=== PATIENT | female | born 1935 | race Asian ===

== ENCOUNTER 2017-01-25 22:43 | Emergency (ER) | payer OTHER ==
[~2017-01-25] VITALS: Ht 160 cm; Wt 72.8 kg
[~2017-01-25 22:43] MED LIST: ACTOPLUS MET 851 TAB PO; ADALAT CC60 MG PO; ADALAT CC90 MG PO; ALDACTONE25 MG PO; ASPIRIN ADULT L81 M1 PO; ASPIRIN EC81 M1 PO; ATORVASTATIN CA40 MG PO; AVANDIA; CALCIUM 600/VIT1 CAP PO; CHLORTHALIDONE25 MG PO; COLACE100 M1 PO; COLACE100 MG PO; COREG CR20 MG PO; COREG CR40 MG PO; COREG25 MG PO; COZAAR100 MG PO; COZAAR50 MG PO; ECOTRIN81 MG PO; FIBER TABLETS625 MG PO; GLUCOPHAGE; HYDROCHLOROTHIA25 M1 PO; HYZAAR 12.5 MG-1 TA1 PO; LEVEMIR100 U/M1 SUBQ; LEVEMIR100 U/ML SUBQ; LEVOTHYROXIN0.025 M1 PO; LIPITOR40 MG PO; LISINORIL; MELOXICAM7.5 MG PO; METOPROLOL25 MG PO; NIFEDIPINE ER90 MG PO; OSCAL+D 500 MG/1 TAB PO; PEPCID20 M1 PO; PRAVASTATIN40 M1 PO; PRAZOSIN PO; PROCARDIA10 M1 PO; SENOKOT8.6 MG PO; SYNTHROID0.025 MG PO; THERAGRAN M PO; TYLENOL325 M1 PO; VITAMIN B12100 MC1 PO; VITAMIN B12500 MC1 PO; XANAX0.5 M1 PO; ZETIA10 MG PO; ZOLPIDEM10 M1 PO; ZYLOPRIM100 MG PO
[2017-01-25 22:51] VITALS: BP 156/63
--- NOTE | 2017-01-26 00:12 | NUR ---
TO ER BED 6
--- NOTE | 2017-01-26 00:15 | NUR ---
PT IS 81/F BIB SON TO ED WITH C/O CONSTIPATION, NO BM X 8 DAYS. PRUNE JUICE GIVEN 1600 AND MOM GIVEN AT 2000. PT.ON COLACE AND SENNA DAILY. HX. DEMENTIA, DM, HTN, CABG 2011. DENIES N/V/D; SKIN IS PINK/WARM/DRY; AAOX4 WITH EVEN AND STEADY GAIT; LUNGS CLEAR BL; HR EVEN AND REGULAR; PT DENIES ANY FEVER, CP, SOB, OR COUGH AT THIS TIME; PATIENT STATES PAIN OF 7/10 AT THIS TIME; VSS; PATIENT POSITIONED FOR COMFORT; HOB ELEVATED; BEDRAILS UP X2; BED DOWN. ER MD MADE AWARE OF PT STATUS.
[2017-01-26] MEDS ORDERED: fentaNYL 0.05 MG/ML VIAL IVP ONE (01:20)
[2017-01-26] MEDS ORDERED: NACL 0.9% 1,000 ML IV ONE (01:20)
[2017-01-26] MEDS ORDERED: LACTULOSE 20 GM/30 ML UDC PO ONE (01:20)
--- NOTE | 2017-01-26 02:27 | NUR ---
PT TAKEN OFF THE UNIT TO CT VIA LILIBETH
--- NOTE | 2017-01-26 03:55 | NUR ---
PT HAD LARGE BM. PT CLEANED, LINEN CHANGED. NO SOB NOTED AT THIS TIME. WILL CONTINUE TO MONITOR.
--- NOTE | 2017-01-26 05:03 | NUR ---
CALLED AND LEFT MESSAGE FOR SON VANESSA. DIRECTED BY VANESSA CALLED AND SPOKE WITH OTHER SON ASIF. 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 PT RESTING IN BED. NO SOB NOTED. WILL CONTINUE TO CLOSELY MONITOR.
[2017-01-26 06:35] VITALS: BP 133/57
--- NOTE | 2017-01-26 06:35 | NUR ---
Patient discharged with v/s stable. Written and verbal after care instructions given and explained. Patient alert, oriented and verbalized understanding of instructions. Wheel Chair Assisted with to car. All questions addressed prior to discharge. ID band removed. Patient advised to follow up with PMD. NO Rx WERE given. Patient educated on indication of medication including possible reaction and side effects. Opportunity to ask questions provided and answered. ACCOMPANIED BY ANNALISE GOLD.
== END 2017-01-26 06:35 | disposition home or self-care (01) ==
LOC: MED 22:43
PROC: 3E033GC Introduction of Other Therapeutic Substance into Peripheral Vein, Percutaneous Approach (ICD-10-PCS; principal; 2017-01-25)
PROC: 4A02X4Z Measurement of Cardiac Electrical Activity, External Approach (ICD-10-PCS; 2017-01-25)
PROC: BW21ZZZ Computerized Tomography (CT Scan) of Abdomen and Pelvis (ICD-10-PCS; 2017-01-25)
DX: K56.41 Fecal impaction (principal)
CPT/HCPCS: 36415; 71010; 74176; 80053; 81001; 82948; 83605; 83880; 84484; 85025; 85610; 85730; 87040; 87086; 93005; 96361; 96374; 99285; J3010; J7030; Q0092